=== PATIENT | female | born 1950 ===

== ENCOUNTER 2018-12-23 13:42 | Emergency (ER) | payer MEDICARE, BC ==
[2018-12-23 13:51] VITALS: BP 135/76; PULSE 77; TEMP 98; O2SAT 98
--- NOTE | 2018-12-23 14:22 | C.PDOC ---
History Of Present Illness 68 y/o female, who wears hearing aids, comes in stating that about 2-3 weeks ago she removed the hearing aid and think that the hard rubber ear tip got stuck in her right ear. Patient complains of right ear discomfort since then. She reports she has an appointment with her manager maritime on 12/28/18. Patient has no other complaints at this time. Time Seen by Provider: 12/23/18 13:58 Chief Complaint (Nursing): ENT Problem History Per: Patient History/Exam Limitations: None Onset/Duration Of Symptoms: Days Current Symptoms Are (Timing): Still Present Past Medical History Reviewed: Historical Data, Nursing Documentation, Vital Signs Vital Signs: Last Vital Signs Temp 98.0 F 12/23/18 13:48 Pulse 77 12/23/18 13:48 Resp 18 12/23/18 13:48 BP 135/76 12/23/18 13:48 Pulse Ox 98 12/23/18 13:48 - Medical History PMH: No Chronic Diseases - [facility] Procedures HEMODIALYSIS (03/21/07) Family History: States: Unknown Family Hx - Social History Hx Alcohol Use: No Hx Substance Use: No Review Of Systems Constitutional: Negative for: Fever, Chills ENT: Positive for: Ear Pain (Right). Negative for: Ear Discharge Cardiovascular: Negative for: Chest Pain Respiratory: Negative for: Shortness of Breath Gastrointestinal: Negative for: Nausea, Vomiting Musculoskeletal: Negative for: Neck Pain Skin: Negative for: Rash Neurological: Negative for: Headache, Dizziness Physical Exam - Physical Exam Appears: Non-toxic, No Acute Distress Skin: Warm, Dry, No Rash Head: Atraumatic, Normacephalic Eye(s): bilateral: PERRL Ear(s): Bilateral: Other (No erythema, swelling, discharge, or wax; no foreign body noted; TM visualized) Oral Mucosa: Moist Neck: Supple Extremity: No Pedal Edema, No Calf Tenderness Extremity: Bilateral: Atraumatic, Normal Color And Temperature, Normal ROM Neurological/Psych: Oriented x3, Normal Speech, Normal Cognition Gait: Steady ED Course And Treatment O2 Sat by Pulse Oximetry: 98 (RA) Pulse Ox Interpretation: Normal Disposition Counseled Patient/Family Regarding: Diagnosis, Need For Followup - Disposition Referrals: Simon Linares MD [Staff Provider] - Disposition: HOME/ ROUTINE Disposition Time: 14:20 Condition: GOOD Additional Instructions: Ebony al Dr. Linares (hemal del odo) para la erlin ms rpida y eleno un seguimiento con lechuga audilogo el jueves dash ya se program. Please call Dr Linares (ear doctor) for soonest appointment and follow up with your manager maritime on as already scheduled. Forms: 10X10 Room (B[place]an), Gen Discharge Inst [place]an Print Language: INDONESIAN - Clinical Impression Clinical Impression: Discomfort of right ear - PA / PROJECT MANAGER PROCESS DEVELOPMENT / Resident Statement MD/DO has reviewed & agrees with the documentation as recorded. - Scribe Statement The provider has reviewed the documentation as recorded by the Scribe Denise Jon All medical record entries made by the Scribe were at my direction and personally dictated by me. I have reviewed the chart and agree that the record accurately reflects my personal performance of the history, physical exam, medical decision making, and the department course for this patient. I have also personally directed, reviewed, and agree with the discharge instructions and disposition.
[2018-12-23 14:31] VITALS: RESP 20
== END 2018-12-23 14:30 | disposition home or self-care (01) ==
LOC: C.ER 13:42
DX: H93.8X1 Other specified disorders of right ear (principal)